=== PATIENT | male | born 1990 | race Two or more races ===

== ENCOUNTER 2018-04-08 14:01 | Emergency (ER) | payer OTHER, SELFPAY ==
[~2018-04-08] VITALS: Ht 180.3 cm; Wt 133.8 kg
[2018-04-08] MEDS ORDERED: CHLORZOXAZONE PO (14:17)
[2018-04-08] MEDS ORDERED: Percocet 5-3251 EACH PO (14:48)
== END 2018-04-08 15:22 | disposition home or self-care (01) ==
LOC: ER 14:01
DX: M79.671 Pain in right foot (principal); M79.672 Pain in left foot
CPT/HCPCS: 96372; 99283; J1885

== ENCOUNTER → 2019-01-30 | Outpatient (CLI) | payer OTHER ==
[~2019-01-30] MED LIST: CHLORZOXAZONE PO; Percocet 5-3251 EACH PO
[2019-01-30 19:50] LABS: BASOPHILS ABSOLUTE AUTO 0.06 K/mm3 (0.00-0.23); BASOPHILS PERCENT AUTO 1 % (0-2); EOSINOPHILS ABSOLUTE AUTO 0.25 K/mm3 (0.00-0.68); EOSINOPHILS PERCENT AUTO 2 % (0-6); Hematocrit 44.7 % (37.0-53.0); Hemoglobin 15.4 g/dL (13.5-17.5); IMMATURE GRAN ABSOLUTE AUTO 0.02 K/mm3 (0.00-0.10); IMMATURE GRAN PERCENT AUTO 0 % (0-1); LYMPHOCYTES ABSOLUTE AUTO 2.11 K/mm3 (0.84-5.20); LYMPHOCYTES PERCENT AUTO 20 % (21-46); MONOCYTES ABSOLUTE AUTO 0.97 K/mm3 (0.16-1.47); MONOCYTES PERCENT AUTO 9 % (4-13); Mean Corpuscular HGB 30.6 pg (26.0-34.0); Mean Corpuscular HGB Conc 34.5 g/dL (31.5-36.5); Mean Corpuscular Volume 89 fL (80-100); Mean Platelet Volume 10.3 fL (9.1-12.4); NEUTROPHILS ABSOLUTE AUTO 7.39 K/mm3 (1.96-9.15); NEUTROPHILS PERCENT AUTO 68 % (41-73); Platelet Count 309 K/mm3 (150-400); RDW Coefficient Variation 11.3 % (11.7-14.2); Red Blood Cell Count 5.04 M/mm3 (4.30-5.90)
== END | disposition home or self-care (01) ==
LOC: LAB SHORT 19:02 → LAB 19:02
PROVIDERS: Emergency Medicine
DX: R50.9 Fever, unspecified (principal)
CPT/HCPCS: 82550; 85025

== ENCOUNTER 2021-01-10 07:52 | Day surgery (SDC) | payer OTHER, SELFPAY ==
[~2021-01-10] VITALS: Ht 182.9 cm; Wt 131.8 kg
[~2021-01-10 07:52] MED LIST changes: +ALBU2.5V5 INH; +ALBU90OI INH; +SYMBICORT 160-4.6 GM INH
[2021-01-10] MEDS ORDERED: ALLO100 PO (09:20)
--- NOTE | 2021-01-10 09:30 | NUR ---
01/10/21 0930 JOSE M MICHEL pt to pre op. IV TO LEFT HAND. VSS ON ROOM AIR, HOWEVER PT HAS WHEEZES BILATERALLY. BREATHING TREATMENT ORDERED AND PERFORMED. ENGAGED IN PRE OP TEACHING.
--- NOTE | 2021-01-10 09:56 | NUR ---
01/10/21 0956 Jose Lopez 0.15CC EPI ADDED TO 30CC 0.5% MARCAINE=MARCAINE 0.5% WITH EPI 1:200,000
--- NOTE | 2021-01-10 12:17 | NUR ---
01/10/21 1217 Antonietta Aviles PT PLEASANT, VSS, TOLERATING PO INTAKE WELL IN SDU. NAUSEA RESOLVED WITH IV ZOFRAN. 1 PO NORCO GIVEN PRIOR TO DC. ICE AND ELEVATION IMPLEMENTED.
== END 2021-01-10 12:05 | disposition home or self-care (01) ==
LOC: ORSCSDS 07:52
PROVIDERS: Podiatrist Foot & Ankle Surgery
PROC: 0SPJ04Z Removal of Internal Fixation Device from Left Tarsal Joint, Open Approach (ICD-10-PCS; principal; 2021-01-10 12:30)
DX: T84.84XA Pain due to internal orthopedic prosthetic devices, implants and grafts, initial encounter (principal); J45.909 Unspecified asthma, uncomplicated; Z79.51 Long term (current) use of inhaled steroids; E66.01 Morbid (severe) obesity due to excess calories; Z68.38 Body mass index [BMI] 38.0-38.9, adult
CPT/HCPCS: A9270; J0171; J0690; J1100; J1885; J2250; J2405; J2704; J3010; J7120

== ENCOUNTER 2021-05-05 14:43 | Day surgery (SDC) | payer OTHER ==
[~2021-05-05] VITALS: Ht 182.9 cm; Wt 131.8 kg
[~2021-05-05 14:43] MED LIST changes: +ALLO100 PO
--- NOTE | 2021-05-05 16:36 | NUR ---
05/05/21 1636 Gregory Lopez POPLITEAL BLOCK COMPLETED IN OR BY DR. TOLBERT WITHOUT DIFFICULTY. PT TOLERATED PROCEDURE WELL.
== END 2021-05-05 17:51 | disposition home or self-care (01) ==
LOC: ORSCSDS 14:43
PROVIDERS: Podiatrist Foot & Ankle Surgery
PROC: 0SPH04Z Removal of Internal Fixation Device from Right Tarsal Joint, Open Approach (ICD-10-PCS; principal; 2021-05-05 16:15)
DX: T84.84XA Pain due to internal orthopedic prosthetic devices, implants and grafts, initial encounter (principal); M10.9 Gout, unspecified; J45.909 Unspecified asthma, uncomplicated; Z79.51 Long term (current) use of inhaled steroids; E66.01 Morbid (severe) obesity due to excess calories; Z68.39 Body mass index [BMI] 39.0-39.9, adult
CPT/HCPCS: A9270; J0171; J0690; J1100; J1885; J2250; J2405; J2704; J3010

== ENCOUNTER 2023-09-10 09:00 | Day surgery (SDC) | payer OTHER ==
[~2023-09-10] VITALS: Ht 182.9 cm; Wt 151.2 kg
[2023-09-10] MEDS ORDERED: FEBUXOSTAT40 MG PO (12:28)
[2023-09-10 14:38] VITALS: BP 157/115
--- NOTE | 2023-09-10 16:13 | NUR ---
09/10/23 1612 Edmond Mtz IV REMOVED INTACT. SITE WNL. PT REPORTED 3/10 PAIN AT TIME OF D/C. HE DESCRIBED PAIN TOLERABLE AND EXPRESSED EAGERNESS TO RETURN HOME. HE WAS CALM, TALKATIVE, AND LAUGHING WITH STAFF. PT WAS FREQUENTLY MOVING ARM WHILE B/P WAS BEING MEASURED IN SDU. SYSTOLIC B/P READINGS WERE <173 WHEN PT HELD ARM STILL. DIASTOLIC WAS <115. DR. KING WAS CONSULTED REGARDING B/P. HE APPROVED D/C AND INSTRUCTED NOT TO GIVE LABETALOL. PT WAS INSTRUCTED BY RN'S AND DR. KING TO FOLLOW UP WITH PCP IMMEDIATELY REGARDING HYPERTENSIONAND CALL 911 IF HE EXPERIENCED SYMPTOMS RELATED TO HYPERTENSION/STROKE.
== END 2023-09-10 15:50 | disposition home or self-care (01) ==
LOC: ORSCSDS 09:00
PROVIDERS: Podiatrist Foot & Ankle Surgery
PROC: 0QBN0ZZ Excision of Right Metatarsal, Open Approach (ICD-10-PCS; principal; 2023-09-10 13:30)
DX: M21.621 Bunionette of right foot (principal); M79.671 Pain in right foot; J45.909 Unspecified asthma, uncomplicated; I10 Essential (primary) hypertension; E66.01 Morbid (severe) obesity due to excess calories; Z68.42 Body mass index [BMI] 45.0-49.9, adult; Z79.899 Other long term (current) drug therapy
CPT/HCPCS: A9270; J0690; J2001; J2250; J2704; J2795; J3010; J7120